=== PATIENT | male | born 1960 | race Caucasian/White ===

== ENCOUNTER 2021-04-12 17:13 | Emergency (ER) | payer SELFPAY ==
[2021-04-12 18:57] LABS: HEMOGLOBIN 13.9 gm/dl (14.0-17.5); RED BLOOD COUNT 4.49 M/UL (4.20-5.50); WHITE BLOOD COUNT 4.6 K/UL (4.5-11.0)
[2021-04-12 19:21] LABS: BUN/CREATININE RATIO 16 (0-10)
[2021-04-12] MEDS ORDERED: CARAFATE 1 GM TA1 GM PO (21:43)
== END 2021-04-12 22:02 | disposition home or self-care (01) ==
LOC: ER1 17:13
PROVIDERS: Physician Assistant
DX: R07.89 Other chest pain (principal); K21.9 Gastro-esophageal reflux disease without esophagitis; I10 Essential (primary) hypertension; Z79.01 Long term (current) use of anticoagulants
CPT/HCPCS: 71045; 80053; 82550; 82553; 83690; 83874; 84484; 85025; 93005; 99285